=== PATIENT | female | born 1995 | race Two or more races ===

== ENCOUNTER 2017-04-10 23:24 | Emergency (ER) | payer OTHER ==
[~2017-04-10] VITALS: Ht 167.6 cm; Wt 47.7 kg
[2017-04-11] MEDS ORDERED: AMOX500C PO (01:01)
[2017-04-11] MEDS ORDERED: ZOFR4TAB3 PO (01:01)
[2017-04-11 01:18] VITALS: BP 125/77
== END 2017-04-11 01:22 | disposition home or self-care (01) ==
LOC: M ED 23:24
DX: J02.0 Streptococcal pharyngitis (principal); R11.0 Nausea

== ENCOUNTER 2017-04-13 22:19 | Emergency (ER) | payer OTHER ==
[~2017-04-13] VITALS: Ht 167.6 cm; Wt 46.4 kg
[~2017-04-13 22:19] MED LIST: AMOX500C PO; ZOFR4TAB3 PO
[2017-04-13] MEDS ORDERED: IBUP-1022 PO (22:28)
[2017-04-14] MEDS ORDERED: diphenhydrAMINE INJ 50MG/ML VIAL (J1200) IV STA (00:16)
[2017-04-14] MEDS ORDERED: METOCLOPRAMIDE INJ 10MG/2ML VIAL (J2765) IV ONE (00:30)
[2017-04-14] MEDS ORDERED: NS 1,000 ML IV ONE (00:30)
[2017-04-14] MEDS ORDERED: KETOROLAC 30 MG/ML VIAL (J1885) IV ONE (00:30)
--- NOTE | 2017-04-14 01:00 | REPUSA ---
CLINICAL HISTORY: Headaches. TECHNIQUE: Multiple axial brain CT scan sections were obtained from base to vertex without contrast a dministration. COMMENTS: The study shows normal configuration of sella turcica. There are no intra or extra-axial collections. There is no mass effect or midline shift. There is no evidence of hematoma formation. No hydrocephal us is present. No abnormal calcifications are noted. No significant abnormalities are seen either in the posterior fossa or supratentorial compartment. The sinuses and mastoid air cells are patent. IMPRESSION: No evidence of acute intracranial pathology. Thank you for your kind referral of this patient.
[2017-04-14 01:29] VITALS: BP 105/74
== END 2017-04-14 01:31 | disposition home or self-care (01) ==
LOC: M ED 22:19
DX: G43.909 Migraine, unspecified, not intractable, without status migrainosus (principal)
CPT/HCPCS: 36415; 70450; 81025; 96374; 96375; 99284; J1200; J1885; J2765

== ENCOUNTER → 2017-08-05 | Outpatient (CLI) | payer OTHER ==
[2017-08-05 14:26] LABS: HCG, SERUM QUANTITATIVE 2744 MIU/ML
== END ==
LOC: M LAB 11:24
DX: O09.291 Supervision of pregnancy with other poor reproductive or obstetric history, first trimester (principal); Z3A.00 Weeks of gestation of pregnancy not specified
CPT/HCPCS: 84702

== ENCOUNTER → 2017-08-07 | Outpatient (CLI) | payer OTHER ==
[2017-08-07 12:27] LABS: HCG, SERUM QUANTITATIVE 5377 MIU/ML
== END ==
LOC: M LAB 10:52
DX: O09.291 Supervision of pregnancy with other poor reproductive or obstetric history, first trimester (principal); Z36.89 Encounter for other specified antenatal screening; Z3A.00 Weeks of gestation of pregnancy not specified
CPT/HCPCS: 84702

== ENCOUNTER → 2017-09-20 | Outpatient (CLI) | payer OTHER ==
[2017-09-20 19:22] LABS: BASO % 0.3 % (0.0-1.0); EOS % 0.4 % (0.0-3.0); HEMATOCRIT 38.1 % (36.0-47.0); HEMOGLOBIN 12.4 g/dl (12.0-16.0); IMMATURE GRANULOCYTE % 0.3 % (0-3.0); LYMPH # 1.7 10^3/uL (1.5-6.5); LYMPH % 21.2 % (24.0-44.0); MEAN CORPUSCULAR HEMOGLOBIN 28.7 pg (27.0-33.0); MEAN CORPUSCULAR HGB CONC 32.5 g/dl (32.0-36.5); MEAN CORPUSCULAR VOLUME 88.2 fl (80.0-96.0); MONO # 0.7 10^3/uL (0.0-0.8); MONO % 8.9 % (0.0-5.0); NEUTROPHILS # 5.4 10^3/uL (1.8-7.7); NEUTROPHILS % 68.9 % (36.0-66.0); PLATELET COUNT, AUTOMATED 276 10^3/uL (150-450); RED BLOOD COUNT 4.32 10^6/uL (4.00-5.40); RED CELL DISTRIBUTION WIDTH 13.4 % (11.5-14.5); WHITE BLOOD COUNT 7.9 10^3/uL (4.0-10.0)
[2017-09-20 21:17] LABS: CHLAMYDIA DNA AMPLIFICATION NEGATIVE (NEGATIVE); GC DNA AMPLIFICATION NEGATIVE (NEGATIVE)
[2017-09-21 11:27] LABS: RUBELLA IgG QUALITATIVE IMMUNE (IMMUNE)
[2017-09-21 11:31] LABS: HBsAg Prenatal NEGATIVE (NEGATIVE)
[2017-09-21 11:55] LABS: HEPATITIS C VIRUS ABY INDEX 0.1 INDEX (<0.8)
[2017-09-21 11:56] LABS: HIV 1&2 SCREEN CENTAUR NEGATIVE (NEGATIVE)
== END ==
LOC: M LAB 16:55
DX: Z34.91 Encounter for supervision of normal pregnancy, unspecified, first trimester (principal); Z3A.01 Less than 8 weeks gestation of pregnancy

== ENCOUNTER → 2017-11-17 | Outpatient (CLI) | payer OTHER | LOC: M RAD 12:35 | DX: Z34.82 Encounter for supervision of other normal pregnancy, second trimester (principal) ==